=== PATIENT | male | born 1955 | race Caucasian/White ===

== ENCOUNTER 2021-04-18 16:14 | Emergency (ER) | payer OTHER ==
[~2021-04-18] VITALS: Ht 152.4 cm; Wt 102.1 kg
[2021-04-18] MEDS ORDERED: UROXATRAL10 MG PO (16:28)
[2021-04-18] MEDS ORDERED: DIOVAN40 MG PO (16:28)
== END 2021-04-18 20:51 | disposition home or self-care (01) ==
LOC: ER 16:14
DX: N20.1 Calculus of ureter (principal); N23 Unspecified renal colic